=== PATIENT | male | born 1975 | race Caucasian/White ===

== ENCOUNTER 2020-06-29 12:06 | Outpatient (CLI) | payer OTHER ==
--- NOTE | 2020-06-29 16:46 | XRAY Report ---
PROCEDURE: Hip 1 View LT INDICATIONS: LEFT HIP PAIN TECHNIQUE: 2 views of the hip were acquired. COMPARISON: None FINDINGS: Bones: No fractures or dislocations. No suspicious bony lesions. The visualized pelvic ring appear s intact. Mild bilateral hip joint space narrowing and periarticular osteophyte formation. Soft tissues: No suspicious soft tissue calcifications or masses. IMPRESSION: Mild hip osteoarthritis bilaterally. No acute fracture. No osseous lesion. If symptoms and/or clinica l suspicion for pathology continue, further assessment with repeat plain films, or advanced imaging ( e.g., CT, MRI, or bone scan) is recommended for further assessment. Reviewed by: Wendy Berman MD on 06/29/2020 4:45 PM PDT Approved by: Wendy Berman MD on 06/29/2020 4:45 PM PDT Station ID: [id number]
== END 2020-06-29 23:59 | disposition home or self-care (01) ==
LOC: DI.WCP 12:06
PROVIDERS: ATTEND Family Medicine
DX: M16.0 Bilateral primary osteoarthritis of hip (principal)